=== PATIENT | male | born 1985 | race Caucasian/White ===

== ENCOUNTER 2017-02-02 21:44 | Emergency (ER) | payer BC, OTHER ==
[~2017-02-02] VITALS: Ht 177.8 cm; Wt 71.5 kg
[2017-02-02 21:54] VITALS: TEMP 36.9; Ht 177.8 cm; Wt 71.5 kg
--- NOTE | 2017-02-02 22:39 | DIAGNOSTIC IMAGING REPORT ---
LEFT FOOT MIN 3 VIEWS ROUTINE CLINICAL HISTORY: Left foot pain following injury. COMPARISON: None FINDINGS: Alignment of the left foot is anatomic. No acute fracture is identified. Tarsometatarsal joints appear intact. There is an accessory ossicle along the lateral aspect of the calcaneocuboid articulation. IMPRESSION: No acute fracture or dislocation of the left foot. Electronically signed by: Phillip Hernandez M.D. 02/02/2017 10:38 PM Dictated Date/Time: 02/02/2017 10:37 PM
--- NOTE | 2017-02-02 22:57 | EMERGENCY ROOM VISIT NOTE ---
ED Visit Note First contact with patient: 22:03 Chief Complaint: Dropped Something on LEFT Foot History of Present Illness: Patient is a 31-year-old male who presents to the emergency department today for evaluation of his LEFT foot injury. The patient reports that he accidentally dropped something on to the top of his LEFT foot yesterday. He reports that he went to work today and was doing okay well wearing his work boots. Tonight, after taking off his boots, he reports increasing pain to the foot as well as associated swelling. He denies any numbness or tingling into the distal toes. He reports no history of fracture or injury to the affected area. He is tried nothing for symptoms to this point. The patient rates his current discomfort as a 4/10. He denies any associated toe pain, ankle pain, or lower leg pain. Medications: No current medications. Allergies: No known allergies. PMH: No pertinent past medical history. SHx: Patient is a 31-year-old male who lives locally. ROS: All pertinent positive and negative review of systems are appropriately documented in the History of Present Illness. Physical Exam: VITAL SIGNS - Vital signs and nursing notes were reviewed. GENERAL - 31-year-old male appearing his stated age and in noticeable discomfort throughout the exam. MUSCULOSKELETAL - LEFT foot with mild edema to the proximal lateral surface. No erythema or ecchymosis. Moderate tenderness to palpation appreciated over the affected area. No tenderness to palpation in the plantar arch. No tenderness extending into the ankle or toes. Pt with full AROM at affected joint. NEUROLOGIC/VASCULAR - Neurovascularly intact distally with +3/5 dorsalis pedis pulses palpated bilaterally. Normal sensation to light and sharp touch appreciated distally. IMAGING: LEFT FOOT MIN 3 VIEWS ROUTINE CLINICAL HISTORY: Left foot pain following injury. COMPARISON: None FINDINGS: Alignment of the left foot is anatomic. No acute fracture is identified. Tarsometatarsal joints appear intact. There is an accessory ossicle along the lateral aspect of the calcaneocuboid articulation. IMPRESSION: No acute fracture or dislocation of the left foot. ED Course: Patient was seen and evaluated by myself. Patient declines anything for their complaint of pain. X-rays were obtained of the affected foot. Imaging results as above. Images were discussed and reviewed with the patient who acknowledges understanding. Patient declines postop shoe or crutches while emergency department. He was encouraged to follow-up with his primary care provider if his symptoms are not improving over the next 4-5 days. The patient was educated on worrisome symptoms for return visit to the emergency department. Patient discharged home in good condition. In the evaluation and treatment of this patient, the following differential diagnoses were considered: Lisfranc Fracture, Talus Fracture, Tarsal Fracture, Foot Sprain. Impression: LEFT Foot Crush Injury Discharge Instructions: You have been treated in the Emergency Department for your LEFT Foot Crush Injury. For pain control, you can use the following [id number] medicines (if >12 yo): - Regular strength (325mg/tab) Tylenol (acetaminophen) 2 tabs every 4-6 hours as needed. Do not exceed 12 tablets in a 24 hour period. Avoid taking more than 4 grams (4000 mg) of Tylenol per day. This includes any other sources of acetaminophen you may take on a regular basis. - Regular strength (200 mg/tab) Advil (ibuprofen) 1-2 tabs every 4-6 hours as needed. Do not exceed a dose of 3200 mg per day. If this is a recent injury (<24 hrs), ice can be applied to the area of pain for the first 3 days to help decrease pain and inflammation. Follow-up with your primary care provider or Orthopedic Surgeon in 4-5 days if your symptoms are not improving despite the treatment plan outlined above. Return to the Emergency Department if your current symptoms worsen despite treatment course outlined above, or if you develop any of the following symptoms : intractable pain despite aforementioned treatment course or new onset of numbness or tingling of the foot. Current/Historical Medications No Active Prescriptions or Reported Meds Allergies Coded Allergies: No Known Allergies (Unverified , 02/02/17) Vital Signs Date Time Temp Pulse Resp B/P Pulse Ox O2 Delivery O2 Flow Rate FiO2 02/02/17 23:12 89 18 127/70 94 02/02/17 21:54 36.9 84 18 145/93 97 Room Air Departure Information Impression Primary Impression: Crush injury of foot Dispostion Home / Self-Care Condition GOOD Prescriptions No Active Prescriptions or Reported Meds Referrals Jean Whitley M.D. (PCP) Patient Instructions My [facility] Additional Instructions You have been treated in the Emergency Department for your LEFT Foot Crush Injury. For pain control, you can use the following ijzh-prw-ogecigl medicines (if >12 yo): - Regular strength (325mg/tab) Tylenol (acetaminophen) 2 tabs every 4-6 hours as needed. Do not exceed 12 tablets in a 24 hour period. Avoid taking more than 4 grams (4000 mg) of Tylenol per day. This includes any other sources of acetaminophen you may take on a regular basis. - Regular strength (200 mg/tab) Advil (ibuprofen) 1-2 tabs every 4-6 hours as needed. Do not exceed a dose of 3200 mg per day. If this is a recent injury (<24 hrs), ice can be applied to the area of pain for the first 3 days to help decrease pain and inflammation. Follow-up with your primary care provider or Orthopedic Surgeon in 4-5 days if your symptoms are not improving despite the treatment plan outlined above. Return to the Emergency Department if your current symptoms worsen despite treatment course outlined above, or if you develop any of the following symptoms : intractable pain despite aforementioned treatment course or new onset of numbness or tingling of the foot. Problem Qualifiers Primary Impression: Crush injury of foot Encounter type: initial encounter Laterality: left Qualified Codes: S97.82XA - Crushing injury of left foot, initial encounter
[2017-02-02 23:12] VITALS: BP 127/70; PULSE 89; O2SAT 94
== END 2017-02-02 23:13 | disposition home or self-care (01) ==
LOC: C.EDB 21:45 → C.EDD 23:13
DX: S97.82XA Crushing injury of left foot, initial encounter (principal); W22.8XXA Striking against or struck by other objects, initial encounter